=== PATIENT | male | born 1965 | race Caucasian/White ===

== ENCOUNTER 2017-05-12 06:40 | Day surgery (SDC) | payer BC, OTHER ==
[~2017-05-12] VITALS: Ht 165.1 cm; Wt 87.1 kg
[2017-05-12] VITALS (8 sets, daily range): BP systolic 115–134; BP diastolic 65–74
--- NOTE | 2017-05-12 06:17 | Anethesia Preoperative Eval ---
Anesthesia Pre-op PMH/ROS General Date of Evaluation: May 12, 2017 Time of Evaluation: 06:06 Anesthesiologist: kenia ASA Score: ASA 3 Mallampati Score Class I : Soft palate, uvula, fauces, pillars visible Class II: Soft palate, uvula, fauces visible Class III: Soft palate, base of uvula visible Class IV: Only hard plate visible Mallampati Classification: Class II Surgeon: helio Diagnosis: abdominal pain Surgical Procedure: egd Anesthesia History: none Social History: smoking - former smoker Family History: no anesthesia problems Allergies: Coded Allergies: CODEINE (Verified Allergy, Severe, ITCHY, 02/15/13) HYDROMORPHONE HCL (Verified Allergy, Severe, "GETS CRAZY", 02/15/13) Medications: see eMAR Past Medical History Cardiovascular: Reports: HTN Gastrointestinal/Genitourinary: Reports: GERD, other - dysphagia Neurologic/Psychiatric: Reports: depression/anxiety HEENT: Reports: other - tinnitus Anesthesia Pre-op Phys. Exam Physician Exam Last Vital Signs Date Time Temp Pulse Resp B/P (MAP) Pulse Ox O2 Delivery O2 Flow Rate FiO2 05/12/17 08:35 52 15 117/73 99 Room Air 05/12/17 08:25 97.4 Constitutional: NAD Neurologic: CN 2-12 intact Cardiovascular: RRR Respiratory: CTA Gastrointestinal: S/NT/ND Airway Exam Mallampati Score: Class II MO: full Neck: supple TMD: 2fb ROM: full Teeth: intact Anesthesia Pre-op A/P Risk Assessment & Plan Assessment: asa3 Plan: mac Status Change Before Surgery: No Pre-Antibiotics Drug: DIONNE Moreno May 12, 2017 06:17
[~2017-05-12 06:40] MED LIST: ISOSORBIDE DINI30 MG ORAL; KLONOPIN1 MG ORAL; NORCO 7.5-3251 EACH ORAL; OMEGA 3-6-9 11200 MG PO; PREVACID30 MG ORAL; TENORMIN50 MG ORAL; ZANTAC300 MG ORAL
[2017-05-12] MEDS ORDERED: LR 1000ml 1,000 ML IVLG SCH ×2 (07:00→08:40)
--- NOTE | 2017-05-12 07:55 | Short Stay Surgery H&P ---
History of Present Illness History of Present Illness Chief Complaint Dysphagia and abdominal pains with GERDS. HPI Zohaib Bailon is a 51 year old male who was admitted on for Abdominal Pain and dysphagia Patient History Allergies: Coded Allergies: CODEINE (Verified Allergy, Severe, ITCHY, 02/15/13) HYDROMORPHONE HCL (Verified Allergy, Severe, "GETS CRAZY", 02/15/13) PAST MEDICAL HISTORY: Past Surgeries: (1) History of orthopedic surgery Social History: Medication History Scheduled Atenolol* (Tenormin*), 50 MG ORAL DAILY, (Reported) Clonazepam* (Klonopin*), 1 MG ORAL QID, (Reported) Fish Oil/Fat No.8/Hrb Comb.137 ([place] 3-6-9 1,200 Mg Softgel), 1,200 MG PO QID, (Reported) Hydrocodone Bit/Acetaminophen 7.5-325* ([place] 7.5-325*), 1 TAB ORAL Q4H, ( Reported) Isosorbide Dinitrate* (Isordil*), 30 MG ORAL DAILY, (Reported) Lansoprazole* (Prevacid*), 30 MG ORAL TWICE A DAY, (Reported) Ranitidine Hcl (Zantac), 300 MG ORAL DAILY, (Reported) Review of Systems Cardiovascular: Reports: no symptoms, hypertension Respiratory: Reports: no symptoms Skeletal: Reports: spinal disc disease Gastrointestinal: Reports: gastro esophageal reflux disease Genitourinary: Reports: no symptoms Neurologic: Reports: no symptoms Endocrine: Reports: no symptoms Hematologic: Reports: no symptoms Physical Exam Vital Signs Last Vital Signs Date Time Temp Pulse Resp B/P (MAP) Pulse Ox O2 Delivery O2 Flow Rate FiO2 05/12/17 07:40 97.2 51 16 130/74 99 Room Air Skin: normal HENT: normal Heart: normal Lungs: normal Abdomen: abnormal Extremities: normal Genitourinary: normal Plan Plan of Care Upper Gi endoscopy. Preop Interventions None. Summary of Findings See the reports Final Diagnosis: Attestation Are the patient's medical conditions optimized for surgery? Attestation Response: yes YOAN LIRIANO May 12, 2017 07:55
--- NOTE | 2017-05-12 07:56 | Pre-Procedure Note/Attestation ---
Pre-Procedure Note/Attestation Complete Prior to Procedure Planned Procedure: left Procedure Narrative: Endoscopic examination of the upper GI tract. Indications for Procedure Pre-Operative Diagnosis: R/O Peptic Ulcer / Gastritis/Esophagitis. Attestation I attest that I discussed the nature of the procedure; its benefits; risks and complications; and alternatives (and the risks and benefits of such alternatives ), prior to the procedure, with the patient (or the patient's legal compliance representative). I attest that, if there was a reasonable possibility of needing a blood transfusion, the patient (or the patient's legal compliance representative) was given the [place] [facility] [employer] [facility] standardized written summary, pursuant to the [place] Blood Safety Act ([place] Health and Safety Code # 1645, as amended). I attest that I re-evaluated the patient just prior to the surgery and that there has been no change in the patient's H&P, except as documented below: DEANDRA,SAID May 12, 2017 07:56
[2017-05-12] MEDS ORDERED: LR 1000ml ONE (08:00)
[2017-05-12] MEDS ORDERED: Lidocaine 1% MPF 10mg/ml 5ml ONE (08:00)
[2017-05-12] MEDS ORDERED: Propofol 200mg/20ml IV ONE (08:00)
--- NOTE | 2017-05-12 08:16 | Endoscopy Procedure Note ---
Endoscopy Procedure Note Indication for Procedure: Abdominal pain/epigastric pain/dysphagia. Procedures Performed: EGD - Completely Normal Upper GI endoscopy. Biopsies done from doudenal bulb and gastric body. Specimen: yes Pt Tolerated Procedure Well: Yes Estimated Blood Loss: none Anesthesiologist: Dr. Stephens. Anesthesia: moderate sedation Medication Given: see anesthesia record Implant(s) used?: No 50 yrs or older w/o bx or poly: Not Applicable 10yrs. F/U not recommended: Not Applicable If not recommended, why?: Med reason:<3 yrs.: System Reason:<3 yrs.: YOAN LIRIANO May 12, 2017 08:16
--- NOTE | 2017-05-12 08:18 | Discharge Instructions ---
Discharge Instructions Discharge Instructions Follow up with: Visit the doctor after two weeks. For Congestive Heart Failure Reminder Report to your physician any weight gain of 5 pounds or more in one week. DEANDRA,YOAN May 12, 2017 08:18
--- NOTE | 2017-05-12 08:40 | Immediate Post-Op Evaluation ---
Immediate Post-Op Evalulation Immediate Post-Op Evalulation Procedure: egd Date of Evaluation: May 12, 2017 Time of Evaluation: 08:39 IV Fluids: 200ml lr Blood Products: none Estimated Blood Loss: negligible Blood Pressure Systolic: 134 Blood Pressure Diastolic: 73 Pulse Rate: 65 Respiratory Rate: 18 O2 Sat by Pulse Oximetry: 99 Temperature (Fahrenheit): 97.4 Pain Score (1-10): 0 Nausea: No Vomiting: No Complications none Patient Status: awake, reacts, patent Hydration Status: adequate Drug: DIONNE Moreno May 12, 2017 08:40
--- NOTE | 2017-05-12 08:43 | 48 Hour Post Anesthesia Eval ---
Post Anesthesia Evaluation Procedure: egd Date of Evaluation: May 12, 2017 Time of Evaluation: 08:42 Blood Pressure Systolic: 133 0: 74 Pulse Rate: 65 Respiratory Rate: 18 Temperature (Fahrenheit): 97.4 O2 Sat by Pulse Oximetry: 99 Airway: patent Nausea: No Vomiting: No Pain Intensity: 0 Hydration Status: adequate Cardiopulmonary Status: stable Mental Status/LOC: patient returned to baseline Post-Anesthesia Complications: none Follow-up care needed: N/A DIONNE GARCIA May 12, 2017 08:43
[2017-05-12] MEDS ORDERED: Midazolam 2mg/2ml Inj IVP PRN (08:45)
[2017-05-12] MEDS ORDERED: DiphenhydrAMINE 50mg/ml Inj IVP PRN (08:45)
[2017-05-12] MEDS ORDERED: Atropine Inj 1mg/10ml Syr IV PRN (08:45)
[2017-05-12] MEDS ORDERED: fentaNYL 100 mcg/2 mL IV PRN (08:45)
--- NOTE | 2017-05-12 22:00 | Procedure Note ---
DATE OF PROCEDURE: 05/12/2017 PROCEDURE: Esophagogastroduodenoscopy with biopsy. PREOPERATIVE DIAGNOSES: 1. Abdominal pain. 2. History of gastroesophageal reflux. 3. 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 POSTOPERATIVE DIAGNOSES: Completely normal upper gastrointestinal endoscopy. Biopsy was taken per random from gastric body and duodenal area. MEDICATION USED: Per Dr. Stephens, anesthesiologist. INSTRUMENT: GIF Olympus upper GI videoendoscope. DESCRIPTION OF PROCEDURE: The patient, after arriving in the endoscopy unit, was told about risks and benefits of the procedure, which he accepted and signed informed consent. At this time, he was put on the left lateral decubitus position. After adequate IV sedation, the scope was gently passed through the cricopharyngeal area and was lodged in the upper esophagus and gradually advanced towards gastroesophageal junction. The entire length of esophagus looked normal. There was no any evidence of exudate, inflammatory process, stricture, ulceration, varices etc. GE junction also looked completely normal without any evidence of Barnes's or hiatal hernia. At this time, the scope was advanced into the stomach. Gastric cavity was distended with insufflation of air and gradually, the areas of the fundus, the body, and the antrum were examined, which looked completely normal with normal covering mucosa. No evidence of ulcers, tumors, polyps, bleeding site, hemangioma, etc., was found. A retroflexion maneuver was also applied in the area of the fundus and there was no any pathology on closer examination of GE junction. Finally, the scope was passed through normal looking antrum, introduced into the pylorus, and first and second portion of duodenum were examined, which also looked completely normal. However, one biopsy randomly was obtained from the duodenal bulb and another one from gastric body. Subsequently, the procedure was terminated. The patient tolerated the procedure well and left the endoscopy room in good condition. Said Nata Gonsalves DR: SOY JOB#: [id number] CC:
--- NOTE | 2017-05-13 02:15 | Pre-op HX & Phy Repo 2 SIG ---
DATE OF ADMISSION: 05/12/2017 HISTORY OF PRESENT ILLNESS: The patient is a 51-year-old gentleman, who is being seen prior to undergoing the procedure for upper gastrointestinal endoscopy, for which he has been scheduled to receive for evaluation of his gastrointestinal symptoms. The patient is well known to us as he has had history of prior condition of his gastrointestinal system subsequent to his work injury basically presenting with epigastric pain who underwent an upper gastrointestinal endoscopy in 2008 having been found to have gastritis and symptoms of gastroesophageal acid reflux. At that time, the patient was treated adequately and was discharged. The patient was followed by Dr. Horace Santamaria as well. The applicant reports that subsequently in years of 2013 and 2014, he underwent multiple surgeries for the conditions of his bodily injuries, which was basically covering the areas of lower back with fusion. Subsequently, he was started on multiple medications, for which he started to have reactions and complaining of having the symptoms of upper GI tract, which was presenting mostly with the pain and aggravation of the heartburn. 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 The applicant in the meantime has been treated with variety of medications including antacids, H2 blockers, and PPIs and at this time, he is taking Prevacid and Zantac. As I mentioned, he does have symptoms of heartburn and difficulty swallowing consistent with dysphagia at this time of which he is complaining. 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 PAST MEDICAL HISTORY: Basically not significant except hypertension and ischemic heart disease, which seems to be under good control at this time. PAST SURGICAL HISTORY: He has had multiple surgeries for the bowel injuries, mostly surgery over his ankle, left knee, and lower back area with fusion, which occurred in 2013 and 2014. ALLERGIES: To codeine, Dilaudid, morphine derivatives. MEDICATIONS: Zantac, Prevacid, Klonopin, [place], isosorbide, trazodone, atenolol, [place] 3, and MiraLAX. HABITS: The applicant used to drink in the past, but at this point, he reports drinking occasionally and rarely and does not smoke. REVIEW OF SYSTEMS: Basically history of present illness. PHYSICAL EXAMINATION: GENERAL: Reveals an alert and oriented gentleman, does not seem to be in acute distress. He looks well developed and nourished. VITAL SIGNS: Stable. HEENT: Normocephalic. Pupils are equal in size and reactive to light. There is no jaundice. Buccal cavity, tongue midline, well hydrated. No ulcers. NECK: Supple. No JVD, thyromegaly, or adenopathy. CHEST: Clear to auscultation and percussion. No rales or rhonchi. HEART: S1 and S2 normal. Regular rhythm. No gallops or murmur. ABDOMEN: Soft, but there is mild areas of some tenderness over the upper part of the abdomen and epigastric area, but there is no palpable mass. No organomegaly noted. There is also some tenderness over the sides of the abdomen, which were not significant. EXTREMITIES: Unremarkable. NEUROLOGIC: Unremarkable. PREOPERATIVE IMPRESSION: 1. Abdominal pain and epigastric pain consistent with chronic gastroesophageal reflux, aggravated by side effects of medications such as NSAIDs used for the treatment of bodily injury. 2. Dysphagia, mostly secondary to gastroesophageal acid reflux, rule out NSAID-induced esophagitis, gastritis, and peptic ulcer disease. 3. History of constipation, mostly secondary to side effects of medication and lack of physical activity. RECOMMENDATIONS: The applicant seems to be stable at this time to undergo the procedure of upper gastrointestinal endoscopy, for which he has been scheduled. He understands the risks and benefits and has signed the consent for it. Said Nata Gonsalves DR: LATONYA JOB#: [id number] CC:
== END 2017-05-12 09:25 | disposition home or self-care (01) ==
LOC: GAS 06:40
DX: R10.9 Unspecified abdominal pain (principal); K29.50 Unspecified chronic gastritis without bleeding; K21.9 Gastro-esophageal reflux disease without esophagitis; I25.9 Chronic ischemic heart disease, unspecified; I10 Essential (primary) hypertension; I11.9 Hypertensive heart disease without heart failure; R13.10 Dysphagia, unspecified; F32.9 Major depressive disorder, single episode, unspecified; F41.9 Anxiety disorder, unspecified; Z87.891 Personal history of nicotine dependence; Z98.1 Arthrodesis status; Z88.6 Allergy status to analgesic agent
CPT/HCPCS: 43239; J2704; J7120; 94003; 94150